=== PATIENT | male | born 1980 | race Caucasian/White ===

== ENCOUNTER 2018-01-01 22:43 | Emergency (ER) | payer MEDICAID ==
[~2018-01-01] VITALS: Ht 167.6 cm; Wt 81.6 kg
[2018-01-01 22:43] VITALS: BP_SYST 121
[2018-01-02 00:22] LABS: BASOPHILS # (AUTO) 0.1 K/uL (0.0-0.2); BASOPHILS % (AUTO) 0.5 % (0.0-2.0); EOSINOPHILS # (AUTO) 0.1 K/uL (0.0-0.4); EOSINOPHILS % (AUTO) 0.8 % (0.0-4.0); HEMATOCRIT 43.6 % (36-54); HEMOGLOBIN 14.4 g/dL (14.0-18.0); LYMPHOCYTES # (AUTO) 2.2 K/uL (1.0-5.5); LYMPHOCYTES % (AUTO) 19.1 % (20.5-51.5); MEAN CORPUSCULAR HEMOGLOBIN 29 pg (27-31); MEAN CORPUSCULAR HGB CONC 33 % (32-36); MEAN CORPUSCULAR VOLUME 87 fL (79.0-98.0); MONOCYTES # (AUTO) 1.4 K/uL (0.0-1.0); MONOCYTES % (AUTO) 12.5 % (1.7-9.3); NEUTROPHILS # (AUTO) 7.7 K/uL (1.8-7.7); NEUTROPHILS % (AUTO) 67.1 % (40.0-70.0); PLATELET COUNT (AUTO) 539 K/uL (130-430); RED BLOOD CELL COUNT(AUTO) 5.02 MIL/uL (4.2-6.2); RED CELL DISTRIBUTION WIDTH 11.8 % (9.0-15.0); WHITE BLOOD COUNT (AUTO) 11.5 K/uL (4.8-10.8)
[2018-01-02 00:34] LABS: CALCIUM 9.3 mg/dL (8.4-11.0); CREATININE 1.09 mg/dL (0.55-1.30); POTASSIUM 4.1 mmol/L (3.5-5.1)
[2018-01-02 00:37] LABS: INR 1.1 (0.80-1.20); PROTHROMBIN TIME 11.5 SECS (9.5-12.5)
[2018-01-02 00:40] LABS: ALBUMIN 3.4 g/dL (3.4-4.8); TOTAL BILIRUBIN 0.9 mg/dL (0.0-1.0)
[2018-01-02] MEDS ORDERED: NACL 0.9% 1,000 ML IV ONE (01:00)
[2018-01-02] MEDS ORDERED: HYDROmorphone 1 MG INJ. 1 MG/ML AMPUL IVP ONE (01:15)
[2018-01-02] MEDS ORDERED: HYDROcodone/ACETAMIN 10-325 MG TAB PO ONE (01:15)
[2018-01-02 02:11] LABS: BILIRUBIN,URINE NEGATIVE (NEGATIVE); BLOOD, URINE NEGATIVE (NEGATIVE); CLARITY/URINE CLEAR (CLEAR); COLOR,URINE YELLOW (YELLOW); GLUCOSE,URINE NEGATIVE (NEGATIVE); KETONES,URINE NEGATIVE (NEGATIVE); LEUKOCYTE ESTERASE ,URINE NEGATIVE (NEGATIVE); NITRITE, URINE NEGATIVE (NEGATIVE); PH,URINE 5.5 (5.0-8.0); PROTEIN URINE TRACE (NEGATIVE); UROBILINOGEN,URINE 0.2 (0.2-1.0)
[2018-01-02 02:38] VITALS: BP_SYST 126
== END 2018-01-02 02:38 | disposition home or self-care (01) ==
LOC: SED 22:43
DX: H66.92 Otitis media, unspecified, left ear (principal)
CPT/HCPCS: 36415; 71045; 80053; 81003; 83605; 83690; 85025; 85610; 85730; 87040; 96360; 99285; J7030; J1170

== ENCOUNTER 2024-03-11 21:14 | Emergency (ER) | payer MEDICAID ==
[~2024-03-11] VITALS: Ht 167.6 cm; Wt 93.0 kg
[2024-03-11 21:24] VITALS: BP_SYST 133; PULSE 86; RESP 20; TEMP 98.3
[2024-03-11] MEDS: KETOROLAC TROMETHAMINE 60 MG/2 ML VIAL IM ONE (22:21)
[2024-03-11] MEDS: MORPHINE 4 MG INJ. 4 MG/ML VIAL IM ONE (22:21)
[2024-03-11] MEDS ORDERED: TRAM50TA2 PO (23:54)
[2024-03-11] MEDS ORDERED: NAPR-1172 PO (23:54)
[2024-03-12 00:02] VITALS: BP_SYST 133; PULSE 86; RESP 20; TEMP 98.3; O2SAT 96
== END 2024-03-12 | disposition home or self-care (01) ==
LOC: SED 21:14
DX: M43.16 Spondylolisthesis, lumbar region (principal); G89.29 Other chronic pain; Z79.899 Other long term (current) drug therapy
CPT/HCPCS: 99285; 72131; 96372; J1885; J2270

== ENCOUNTER 2024-07-25 09:25 | Emergency (ER) | payer MEDICAID ==
[~2024-07-25] VITALS: Ht 167.6 cm; Wt 104.3 kg
[~2024-07-25 09:25] MED LIST: CIPR500T5 PO; METR-154 PO
[2024-07-25 09:32] VITALS: BP_SYST 132; PULSE 85; RESP 20; TEMP 97.7; O2SAT 95
[2024-07-25 10:21] LABS: STREPTOCOCCUS A SCREEN (RAPID) POSITIVE (NEGATIVE)
[2024-07-25 10:42] LABS: COVID19 ANTIGEN SOFIA FIA NEGATIVE (NEGATIVE); INFLUENZA TYPE A Positive (NEGATIVE); INFLUENZA TYPE B POSITIVE (NEGATIVE)
[2024-07-25] MEDS ORDERED: OSEL75CA PO (10:49)
[2024-07-25] MEDS ORDERED: AUG875 PO (10:49)
[2024-07-25] MEDS: LIDOCAINE 1% 10 MG/ML, 20 ML MDV INJ ONE (11:00)
[2024-07-25] MEDS: cefTRIAXone 1 GM VIAL IM ONE (11:00)
[2024-07-25 11:39] VITALS: BP_SYST 132; PULSE 85; RESP 20; TEMP 97.7; O2SAT 95
== END 2024-07-25 11:19 | disposition home or self-care (01) ==
LOC: SED 09:25
DX: J10.1 Influenza due to other identified influenza virus with other respiratory manifestations (principal); J02.0 Streptococcal pharyngitis; Z20.822 Contact with and (suspected) exposure to COVID-19; Z79.899 Other long term (current) drug therapy; Z79.2 Long term (current) use of antibiotics
CPT/HCPCS: 99284; 71045; 87426; 86403; 36415; 96372; 87804 ×2; J0696; J2001